=== PATIENT | female | born 1970 | race Caucasian/White ===

== ENCOUNTER 2017-12-22 19:04 | Emergency (ER) | payer MEDICAID ==
[2017-12-22 19:05] VITALS: BMI 25.7
[2017-12-22 19:17] VITALS: BP 154/73; PULSE 94; RESP 16; TEMP 98.3; O2SAT 100
--- NOTE | 2017-12-22 20:52 | ED PDOC ---
HPI: Skin/Bite Injury Time Seen by Provider: 12/22/17 19:20 Chief Complaint (Nursing): Abnormal Skin Integrity Chief Complaint (Provider): Rash History Per: Patient History/Exam Limitations: no limitations Onset/Duration Of Symptoms: Days (4) Current Symptoms Are (Timing): Still Present Additional Complaint(s): 47 year old female presents to the ED complaining of a burning, itchy rash to her bilateral forearms onset four days ago after cutting trees in her yard. PMD: Neo Dean Past Medical History Reviewed: Historical Data, Nursing Documentation, Vital Signs Vital Signs: Last Vital Signs Temp 98.3 F 12/22/17 19:14 Pulse 94 H 12/22/17 19:14 Resp 16 12/22/17 19:14 BP 154/73 H 12/22/17 19:14 Pulse Ox 100 12/22/17 19:14 - Medical History PMH: Asthma, Atrial Fibrillation, Back Problems, CAD, Migraine Denies: Chronic Kidney Disease - Surgical History Other surgeries: partial hysterectomy, left breast biopsy - Family History Family History: States: Unknown Family Hx - Social History Current smoker - smoking cessation education provided: No Alcohol: None Drugs: Denies - Home Medications Home Medications: Ambulatory Orders Medication Instructions Recorded Digoxin [Lanoxin] 0.25 mg PO DAILY 07/21/15 Naproxen 500 mg PO BID PRN #30 tablet 07/21/15 Oxycodone HCl/Acetaminophen 1 tab PO PRN PRN 07/21/15 [Percocet 5-325 mg Tablet] Naproxen [Naprosyn] 500 mg PO BID #20 tab 08/23/15 oxyCODONE/Acetaminophen [Percocet 1 tab PO BID PRN #7 tab 01/24/16 5/325 mg Tab] DiphenhydrAMINE [Benadryl] 50 mg PO Q6H PRN #20 cap 12/22/17 predniSONE [predniSONE Tab] 20 mg PO DAILY #12 tab 12/22/17 - Allergies Allergies/Adverse Reactions: Allergies Allergy/AdvReac Type Severity Reaction Status Date / Time shellfish derived Allergy RASH Verified 07/21/15 15:56 Review of Systems ROS Statement: Except As Marked, All Systems Reviewed And Found Negative Skin: Positive for: Rash (burning, itchy) Physical Exam - Reviewed Nursing Documentation Reviewed: Yes Vital Signs Reviewed: Yes - Physical Exam Appears: Positive for: No Acute Distress Head Exam: Positive for: ATRAUMATIC, NORMOCEPHALIC Skin: Positive for: Rash (bilateral forearms: erythematous with raised abnormal borders and some areas of scaling) Eye Exam: Positive for: Normal appearance Neurologic/Psych: Positive for: Alert, Oriented (x3) - ECG O2 Sat by Pulse Oximetry: 100 (RA) Pulse Ox Interpretation: Normal Medical Decision Making Medical Decision Making: Initial Impression: rash Time: 20:08 Initial Plan: --Benadryl 50 mg PO --Methylprednisolone 125 mg IM Scribe Attestation Documented by Caryn Hendricks acting as a scribe for Olimpia Fountain PA-C. Provider Attestation All medical record entries made by the Scribe were at my direction and personally dictated by me. I have reviewed the chart and agree that the record accurately reflects my personal performance of the history, physical exam, medical decision making, and the department course for this patient. I have also personally directed, reviewed, and agree with the discharge instructions and disposition. Disposition - Clinical Impression Clinical Impression: Contact dermatitis - Patient ED Disposition Is Patient to be Admitted: No - Disposition Disposition: Routine/Home Disposition Time: 20:50 Prescriptions: DiphenhydrAMINE [Benadryl] 50 mg PO Q6H PRN #20 cap PRN Reason: Itching / Pruritus predniSONE [predniSONE Tab] 20 mg PO DAILY #12 tab Instructions: Contact Dermatitis (DC) Forms: [employer] (Portuguese)
== END 2017-12-22 20:51 | disposition home or self-care (01) ==
LOC: H.ER 19:04
DX: L25.9 Unspecified contact dermatitis, unspecified cause (principal); I25.10 Atherosclerotic heart disease of native coronary artery without angina pectoris; I48.91 Unspecified atrial fibrillation; J45.909 Unspecified asthma, uncomplicated
CPT/HCPCS: 81025; 96372; 99283; J2930